=== PATIENT | male | born 1965 | race African-American/Black ===

== ENCOUNTER 2021-03-18 13:12 | Inpatient (IN) | payer OTHER ==
[2021-03-18 14:21] VITALS: BMI 24.0
[2021-03-18] MEDS ORDERED: MAGNESIUM CITRATE 300 ML BOTTLE PO PRN (19:14)
[2021-03-18] MEDS ORDERED: MENTHOL/PHENOL 1 EACH UD MM PRN (19:14)
[2021-03-18] MEDS ORDERED: diazePAM 5 MG TABLET PO PRN (19:14)
[2021-03-18] MEDS ORDERED: MAGNESIUM HYDROX 2400MG/30ML ORAL SUSPENSION 30 ML CUP PO PRN (19:14)
[2021-03-18] MEDS ORDERED: BISMUTH SUBSALICYLATE 524 MG/30 ML PO PRN (19:14)
[2021-03-18] MEDS ORDERED: IBUPROFEN 400 MG TABLET (FP) PO PRN (19:14)
[2021-03-18] MEDS ORDERED: ONDANSETRON *ODT* 4 MG TABLET SL PRN (19:14)
[2021-03-18] MEDS ORDERED: MAG HYDROX/AL HYDROX/SIMETH 30 ML UNIT-DOSE CUP PO PRN (19:14)
[2021-03-18] MEDS ORDERED: ACETAMINOPHEN 325 MG TABLET (FP) PO PRN ×2 (19:14)
[2021-03-18] MEDS ORDERED: METHOCARBAMOL 500 MG TABLET PO PRN (19:14)
[2021-03-18] MEDS ORDERED: NICOTINE POLACRILEX 2 MG GUM BUC PRN (19:14)
[2021-03-18] MEDS: MELATONIN 5 MG TABLETS PO SCH (22:11)
[2021-03-18] MEDS: THIAMINE HCL 100 MG TABLET (FP) PO SCH (22:12)
[2021-03-18] MEDS ORDERED: diazePAM 5 MG TABLET ONE (22:13)
[2021-03-18] MEDS: diazePAM 5 MG TABLET PO SCH (22:14)
[2021-03-19] MEDS ORDERED: diazePAM 5 MG TABLET ONE ×2 (05:48→10:38)
[2021-03-19] MEDS: diazePAM 5 MG TABLET PO SCH ×3 (06:37→18:27)
[2021-03-19] MEDS ORDERED: amLODIPine BESYLATE 5 MG TABLET (FP) ONE (10:38)
[2021-03-19] MEDS ORDERED: ASPIRIN 81 MG CHEWABLE TABLETS ONE (10:38)
[2021-03-19] MEDS ORDERED: LISINOPRIL 10 MG TABLET ONE (10:39)
[2021-03-19] MEDS: ASPIRIN COATED 81 MG TABLET.EC PO SCH (10:45)
[2021-03-19] MEDS: LISINOPRIL 5 MG TABLET PO SCH (10:46)
[2021-03-19] MEDS: amLODIPine BESYLATE 5 MG TABLET (FP) PO SCH (10:46)
[2021-03-19] MEDS: PRENATAL VITAMINS W/ FOLIC ACID TABLET (FP) PO SCH (12:34)
[2021-03-19] MEDS: NICOTINE 21 MG/24 HOURS TOPICAL PATCH TD SCH (12:34)
[2021-03-20] MEDS: ATORVASTATIN CA 10 MG TABLET (FP) PO SCH ×2 (00:50→22:00)
[2021-03-20] MEDS: MELATONIN 5 MG TABLETS PO SCH ×2 (00:51→22:00)
[2021-03-20] MEDS: diazePAM 5 MG TABLET PO SCH ×4 (00:51→22:01)
[2021-03-20] MEDS: THIAMINE HCL 100 MG TABLET (FP) PO SCH ×2 (00:51→22:00)
[2021-03-20] MEDS: PRENATAL VITAMINS W/ FOLIC ACID TABLET (FP) PO SCH (10:45)
[2021-03-20] MEDS: LISINOPRIL 5 MG TABLET PO SCH (10:45)
[2021-03-20] MEDS: NICOTINE 21 MG/24 HOURS TOPICAL PATCH TD SCH (10:45)
[2021-03-20] MEDS: ASPIRIN COATED 81 MG TABLET.EC PO SCH (10:45)
[2021-03-20] MEDS: amLODIPine BESYLATE 5 MG TABLET (FP) PO SCH (10:45)
[2021-03-20] MEDS: HALOPERIDOL 5 MG TABLET PO SCH (13:34)
[2021-03-20] MEDS: QUEtiapine FUMARATE 50 MG TABLET PO SCH (22:00)
[2021-03-20] MEDS: diphenhydrAMINE HCL 25 MG CAPSULE (FP) PO SCH (22:01)
[2021-03-21] MEDS: diazePAM 5 MG TABLET PO SCH ×2 (07:30→19:27)
[2021-03-21] MEDS: ASPIRIN COATED 81 MG TABLET.EC PO SCH (10:50)
[2021-03-21] MEDS: HALOPERIDOL 5 MG TABLET PO SCH (10:50)
[2021-03-21] MEDS: LISINOPRIL 5 MG TABLET PO SCH (10:51)
[2021-03-21] MEDS: NICOTINE 21 MG/24 HOURS TOPICAL PATCH TD SCH (10:51)
[2021-03-21] MEDS: PRENATAL VITAMINS W/ FOLIC ACID TABLET (FP) PO SCH (10:51)
[2021-03-21] MEDS: amLODIPine BESYLATE 5 MG TABLET (FP) PO SCH (10:51)
[2021-03-21 19:55] LABS: CALCIUM 8.7 mg/dL (8.5-10.1)
[2021-03-21 19:56] LABS: ALBUMIN 3.5 g/dl (3.4-5.0); BLOOD UREA NITROGEN 14.1 mg/dL (7-18)
[2021-03-21 19:59] LABS: CREATININE 0.9 mg/dL (0.55-1.3)
[2021-03-21 20:01] LABS: BILIRUBIN,TOTAL 0.2 mg/dL (0.2-1); TOT PROT 5.9 g/dl (6.4-8.2)
[2021-03-21] MEDS: QUEtiapine FUMARATE 50 MG TABLET PO SCH (22:07)
[2021-03-21] MEDS: diphenhydrAMINE HCL 25 MG CAPSULE (FP) PO SCH (22:07)
[2021-03-21] MEDS: ATORVASTATIN CA 10 MG TABLET (FP) PO SCH (22:08)
[2021-03-21] MEDS: THIAMINE HCL 100 MG TABLET (FP) PO SCH (22:08)
[2021-03-21] MEDS: MELATONIN 5 MG TABLETS PO SCH (22:08)
[2021-03-22] MEDS ORDERED: diazePAM 5 MG TABLET PO ONE (06:00)
[2021-03-22] MEDS: ASPIRIN COATED 81 MG TABLET.EC PO SCH (10:45)
[2021-03-22] MEDS: HALOPERIDOL 5 MG TABLET PO SCH (10:45)
[2021-03-22] MEDS: amLODIPine BESYLATE 5 MG TABLET (FP) PO SCH (10:45)
[2021-03-22] MEDS: LISINOPRIL 5 MG TABLET PO SCH (10:45)
[2021-03-22] MEDS: PRENATAL VITAMINS W/ FOLIC ACID TABLET (FP) PO SCH (10:45)
[2021-03-22] MEDS: NICOTINE 21 MG/24 HOURS TOPICAL PATCH TD SCH (10:46)
[2021-03-22 18:16] VITALS: BP 139/95; PULSE 69; TEMP 97.1
== END 2021-03-22 18:28 | disposition other institution (70) | DRG 775 ==
LOC: YASAS 13:12 → Y3N 03-19 11:03
PROVIDERS: ADMIT Allergy & Immunology; ATTEND Allergy & Immunology
PROC: HZ2ZZZZ Detoxification Services for Substance Abuse Treatment (ICD-10-PCS; principal; 2021-03-19)
DX: F10.230 Alcohol dependence with withdrawal, uncomplicated (principal); F10.220 Alcohol dependence with intoxication, uncomplicated; F12.20 Cannabis dependence, uncomplicated; F17.210 Nicotine dependence, cigarettes, uncomplicated; F32.9 Major depressive disorder, single episode, unspecified; F25.9 Schizoaffective disorder, unspecified; I10 Essential (primary) hypertension; E78.5 Hyperlipidemia, unspecified; R01.1 Cardiac murmur, unspecified; R76.11 Nonspecific reaction to tuberculin skin test without active tuberculosis; G47.00 Insomnia, unspecified; Z56.0 Unemployment, unspecified
CPT/HCPCS: 36415; 80053; 86593; 86780; 93005; 93010; C9803; U0003; U0005

== ENCOUNTER 2021-03-22 17:24 | Inpatient (IN) | payer OTHER ==
[2021-03-22] MEDS ORDERED: MAG HYDROX/AL HYDROX/SIMETH 30 ML UNIT-DOSE CUP PO PRN (18:42)
[2021-03-22] MEDS ORDERED: MAGNESIUM CITRATE 300 ML BOTTLE PO PRN (18:42)
[2021-03-22] MEDS ORDERED: guaiFENesin 200 MG/10 ML 10 ML UNIT-DOSE CUPS PO PRN (18:42)
[2021-03-22] MEDS ORDERED: LOPERAMIDE HCL 2 MG CAPSULE PO PRN (18:42)
[2021-03-22] MEDS ORDERED: NICOTINE POLACRILEX 2 MG GUM BUC PRN (18:42)
[2021-03-22] MEDS ORDERED: MENTHOL/PHENOL 1 EACH UD MM PRN (18:42)
[2021-03-22] MEDS ORDERED: MAGNESIUM HYDROX 2400MG/30ML ORAL SUSPENSION 30 ML CUP PO PRN (18:42)
[2021-03-22] MEDS ORDERED: ACETAMINOPHEN 325 MG TABLET (FP) PO PRN (18:42)
[2021-03-22] MEDS ORDERED: P-EPHED 60MG/TRIPROLIDI 2.5MG TABLET PO PRN (18:42)
[2021-03-22] MEDS ORDERED: diphenhydrAMINE HCL 50 MG CAPSULE PO SCH (22:00)
[2021-03-22] MEDS: ATORVASTATIN CA 10 MG TABLET (FP) PO SCH (23:11)
[2021-03-22] MEDS: THIAMINE HCL 100 MG TABLET (FP) PO SCH (23:11)
[2021-03-22] MEDS: diphenhydrAMINE HCL 25 MG CAPSULE (FP) PO SCH (23:11)
[2021-03-22] MEDS: MELATONIN 5 MG TABLETS PO SCH (23:13)
[2021-03-22] MEDS ORDERED: QUEtiapine FUMARATE 50 MG TABLET PO ONE (23:15)
[2021-03-23] MEDS: ASPIRIN COATED 81 MG TABLET.EC PO SCH (10:16)
[2021-03-23] MEDS: amLODIPine BESYLATE 5 MG TABLET (FP) PO SCH (10:16)
[2021-03-23] MEDS: LISINOPRIL 5 MG TABLET PO SCH (10:16)
[2021-03-23] MEDS: PRENATAL VITAMINS W/ FOLIC ACID TABLET (FP) PO SCH (10:16)
[2021-03-23] MEDS: HALOPERIDOL 5 MG TABLET PO SCH (10:18)
[2021-03-23] MEDS: MELATONIN 5 MG TABLETS PO SCH (21:34)
[2021-03-23] MEDS: diphenhydrAMINE HCL 25 MG CAPSULE (FP) PO SCH (21:34)
[2021-03-23] MEDS: ATORVASTATIN CA 10 MG TABLET (FP) PO SCH (21:34)
[2021-03-23] MEDS: THIAMINE HCL 100 MG TABLET (FP) PO SCH (21:34)
[2021-03-23] MEDS: QUEtiapine FUMARATE 100 MG TABLET (FP) PO SCH (21:34)
[2021-03-24] MEDS: PRENATAL VITAMINS W/ FOLIC ACID TABLET (FP) PO SCH (10:08)
[2021-03-24] MEDS: amLODIPine BESYLATE 5 MG TABLET (FP) PO SCH (10:09)
[2021-03-24] MEDS: ASPIRIN COATED 81 MG TABLET.EC PO SCH (10:09)
[2021-03-24] MEDS: HALOPERIDOL 5 MG TABLET PO SCH (10:09)
[2021-03-24] MEDS: LISINOPRIL 5 MG TABLET PO SCH (10:09)
[2021-03-24] MEDS: diphenhydrAMINE HCL 25 MG CAPSULE (FP) PO SCH (21:34)
[2021-03-24] MEDS: THIAMINE HCL 100 MG TABLET (FP) PO SCH (21:34)
[2021-03-24] MEDS: ATORVASTATIN CA 10 MG TABLET (FP) PO SCH (21:34)
[2021-03-24] MEDS: QUEtiapine FUMARATE 100 MG TABLET (FP) PO SCH (21:34)
[2021-03-24] MEDS: MELATONIN 5 MG TABLETS PO SCH (21:35)
[2021-03-25] MEDS: PRENATAL VITAMINS W/ FOLIC ACID TABLET (FP) PO SCH (09:39)
[2021-03-25] MEDS: ASPIRIN COATED 81 MG TABLET.EC PO SCH (09:40)
[2021-03-25] MEDS: LISINOPRIL 5 MG TABLET PO SCH (09:40)
[2021-03-25] MEDS: HALOPERIDOL 5 MG TABLET PO SCH (09:40)
[2021-03-25] MEDS: amLODIPine BESYLATE 5 MG TABLET (FP) PO SCH (09:40)
[2021-03-25] MEDS: QUEtiapine FUMARATE 100 MG TABLET (FP) PO SCH (21:27)
[2021-03-25] MEDS: ATORVASTATIN CA 10 MG TABLET (FP) PO SCH (21:27)
[2021-03-25] MEDS: diphenhydrAMINE HCL 25 MG CAPSULE (FP) PO SCH (21:27)
[2021-03-25] MEDS: THIAMINE HCL 100 MG TABLET (FP) PO SCH (21:27)
[2021-03-25] MEDS: MELATONIN 5 MG TABLETS PO SCH (21:28)
[2021-03-26] MEDS: PRENATAL VITAMINS W/ FOLIC ACID TABLET (FP) PO SCH (10:03)
[2021-03-26] MEDS: ASPIRIN COATED 81 MG TABLET.EC PO SCH (10:04)
[2021-03-26] MEDS: amLODIPine BESYLATE 5 MG TABLET (FP) PO SCH (10:04)
[2021-03-26] MEDS: HALOPERIDOL 5 MG TABLET PO SCH (10:04)
[2021-03-26] MEDS: LISINOPRIL 5 MG TABLET PO SCH (10:04)
[2021-03-26] MEDS: QUEtiapine FUMARATE 100 MG TABLET (FP) PO SCH (21:45)
[2021-03-26] MEDS: ATORVASTATIN CA 10 MG TABLET (FP) PO SCH (21:45)
[2021-03-26] MEDS: THIAMINE HCL 100 MG TABLET (FP) PO SCH (21:45)
[2021-03-26] MEDS: diphenhydrAMINE HCL 25 MG CAPSULE (FP) PO SCH (21:46)
[2021-03-26] MEDS: MELATONIN 5 MG TABLETS PO SCH (21:46)
[2021-03-27] MEDS: LISINOPRIL 5 MG TABLET PO SCH (10:10)
[2021-03-27] MEDS: PRENATAL VITAMINS W/ FOLIC ACID TABLET (FP) PO SCH (10:10)
[2021-03-27] MEDS: ASPIRIN COATED 81 MG TABLET.EC PO SCH (10:10)
[2021-03-27] MEDS: HALOPERIDOL 5 MG TABLET PO SCH (10:11)
[2021-03-27] MEDS: amLODIPine BESYLATE 5 MG TABLET (FP) PO SCH (10:11)
[2021-03-27] MEDS: MELATONIN 5 MG TABLETS PO SCH (21:35)
[2021-03-27] MEDS: diphenhydrAMINE HCL 25 MG CAPSULE (FP) PO SCH (21:35)
[2021-03-27] MEDS: THIAMINE HCL 100 MG TABLET (FP) PO SCH (21:35)
[2021-03-27] MEDS: QUEtiapine FUMARATE 100 MG TABLET (FP) PO SCH (21:35)
[2021-03-27] MEDS: ATORVASTATIN CA 10 MG TABLET (FP) PO SCH (21:35)
[2021-03-28] MEDS: amLODIPine BESYLATE 5 MG TABLET (FP) PO SCH (10:28)
[2021-03-28] MEDS: ASPIRIN COATED 81 MG TABLET.EC PO SCH (10:28)
[2021-03-28] MEDS: PRENATAL VITAMINS W/ FOLIC ACID TABLET (FP) PO SCH (10:28)
[2021-03-28] MEDS: HALOPERIDOL 5 MG TABLET PO SCH (10:28)
[2021-03-28] MEDS: LISINOPRIL 5 MG TABLET PO SCH (10:28)
[2021-03-28] MEDS: THIAMINE HCL 100 MG TABLET (FP) PO SCH (22:08)
[2021-03-28] MEDS: MELATONIN 5 MG TABLETS PO SCH (22:08)
[2021-03-28] MEDS: QUEtiapine FUMARATE 100 MG TABLET (FP) PO SCH (22:08)
[2021-03-28] MEDS: diphenhydrAMINE HCL 25 MG CAPSULE (FP) PO SCH (22:08)
[2021-03-28] MEDS: ATORVASTATIN CA 10 MG TABLET (FP) PO SCH (22:08)
[2021-03-29] MEDS: amLODIPine BESYLATE 5 MG TABLET (FP) PO SCH (10:29)
[2021-03-29] MEDS: ASPIRIN COATED 81 MG TABLET.EC PO SCH (10:29)
[2021-03-29] MEDS: HALOPERIDOL 5 MG TABLET PO SCH (10:29)
[2021-03-29] MEDS: PRENATAL VITAMINS W/ FOLIC ACID TABLET (FP) PO SCH (10:29)
[2021-03-29] MEDS: LISINOPRIL 5 MG TABLET PO SCH (10:29)
[2021-03-29] MEDS: MELATONIN 5 MG TABLETS PO SCH (21:35)
[2021-03-29] MEDS: THIAMINE HCL 100 MG TABLET (FP) PO SCH (21:35)
[2021-03-29] MEDS: diphenhydrAMINE HCL 25 MG CAPSULE (FP) PO SCH (21:36)
[2021-03-29] MEDS: QUEtiapine FUMARATE 100 MG TABLET (FP) PO SCH (21:36)
[2021-03-29] MEDS: ATORVASTATIN CA 10 MG TABLET (FP) PO SCH (21:36)
[2021-03-30] MEDS: LISINOPRIL 5 MG TABLET PO SCH (10:39)
[2021-03-30] MEDS: ASPIRIN COATED 81 MG TABLET.EC PO SCH (10:39)
[2021-03-30] MEDS: amLODIPine BESYLATE 5 MG TABLET (FP) PO SCH (10:39)
[2021-03-30] MEDS: HALOPERIDOL 5 MG TABLET PO SCH (10:39)
[2021-03-30] MEDS: PRENATAL VITAMINS W/ FOLIC ACID TABLET (FP) PO SCH (10:40)
[2021-03-30] MEDS ORDERED: COVID-19 VAC,AD26(JANSSEN)/PF 0.5 ML IM ONE (12:00)
[2021-03-30] MEDS: ATORVASTATIN CA 10 MG TABLET (FP) PO SCH (21:51)
[2021-03-30] MEDS: diphenhydrAMINE HCL 25 MG CAPSULE (FP) PO SCH (21:51)
[2021-03-30] MEDS: THIAMINE HCL 100 MG TABLET (FP) PO SCH (21:51)
[2021-03-30] MEDS: QUEtiapine FUMARATE 100 MG TABLET (FP) PO SCH (21:51)
[2021-03-30] MEDS: MELATONIN 5 MG TABLETS PO SCH (21:52)
[2021-03-31] MEDS: HALOPERIDOL 5 MG TABLET PO SCH (10:36)
[2021-03-31] MEDS: LISINOPRIL 5 MG TABLET PO SCH (10:36)
[2021-03-31] MEDS: METHOCARBAMOL 500 MG TABLET PO PRN ×2 (10:37→21:42)
[2021-03-31] MEDS: ASPIRIN COATED 81 MG TABLET.EC PO SCH (10:37)
[2021-03-31] MEDS: PRENATAL VITAMINS W/ FOLIC ACID TABLET (FP) PO SCH (10:37)
[2021-03-31] MEDS: IBUPROFEN 400 MG TABLET (FP) PO PRN ×2 (10:37→21:41)
[2021-03-31] MEDS: amLODIPine BESYLATE 5 MG TABLET (FP) PO SCH (10:37)
[2021-03-31] MEDS: QUEtiapine FUMARATE 100 MG TABLET (FP) PO SCH (21:41)
[2021-03-31] MEDS: THIAMINE HCL 100 MG TABLET (FP) PO SCH (21:41)
[2021-03-31] MEDS: diphenhydrAMINE HCL 25 MG CAPSULE (FP) PO SCH (21:41)
[2021-03-31] MEDS: ATORVASTATIN CA 10 MG TABLET (FP) PO SCH (21:41)
[2021-03-31] MEDS: MELATONIN 5 MG TABLETS PO SCH (22:21)
[2021-04-01] MEDS: ASPIRIN COATED 81 MG TABLET.EC PO SCH (10:27)
[2021-04-01] MEDS: LISINOPRIL 5 MG TABLET PO SCH (10:27)
[2021-04-01] MEDS: amLODIPine BESYLATE 5 MG TABLET (FP) PO SCH (10:27)
[2021-04-01] MEDS: HALOPERIDOL 5 MG TABLET PO SCH (10:28)
[2021-04-01] MEDS: PRENATAL VITAMINS W/ FOLIC ACID TABLET (FP) PO SCH (10:28)
[2021-04-01] MEDS: QUEtiapine FUMARATE 100 MG TABLET (FP) PO SCH (21:56)
[2021-04-01] MEDS: diphenhydrAMINE HCL 25 MG CAPSULE (FP) PO SCH (21:56)
[2021-04-01] MEDS: ATORVASTATIN CA 10 MG TABLET (FP) PO SCH (21:56)
[2021-04-01] MEDS: THIAMINE HCL 100 MG TABLET (FP) PO SCH (21:56)
[2021-04-01] MEDS: MELATONIN 5 MG TABLETS PO SCH (21:57)
[2021-04-02] MEDS: ASPIRIN COATED 81 MG TABLET.EC PO SCH (10:15)
[2021-04-02] MEDS: LISINOPRIL 5 MG TABLET PO SCH (10:15)
[2021-04-02] MEDS: PRENATAL VITAMINS W/ FOLIC ACID TABLET (FP) PO SCH (10:15)
[2021-04-02] MEDS: HALOPERIDOL 5 MG TABLET PO SCH (10:15)
[2021-04-02] MEDS: amLODIPine BESYLATE 5 MG TABLET (FP) PO SCH (10:15)
[2021-04-02] MEDS: diphenhydrAMINE HCL 25 MG CAPSULE (FP) PO SCH (21:37)
[2021-04-02] MEDS: ATORVASTATIN CA 10 MG TABLET (FP) PO SCH (21:37)
[2021-04-02] MEDS: THIAMINE HCL 100 MG TABLET (FP) PO SCH (21:37)
[2021-04-02] MEDS: QUEtiapine FUMARATE 100 MG TABLET (FP) PO SCH (21:37)
[2021-04-02] MEDS: MELATONIN 5 MG TABLETS PO SCH (21:38)
[2021-04-03] MEDS: LISINOPRIL 5 MG TABLET PO SCH (10:10)
[2021-04-03] MEDS: HALOPERIDOL 5 MG TABLET PO SCH (10:10)
[2021-04-03] MEDS: ASPIRIN COATED 81 MG TABLET.EC PO SCH (10:10)
[2021-04-03] MEDS: amLODIPine BESYLATE 5 MG TABLET (FP) PO SCH (10:11)
[2021-04-03] MEDS: PRENATAL VITAMINS W/ FOLIC ACID TABLET (FP) PO SCH (10:11)
[2021-04-03] MEDS: METHOCARBAMOL 500 MG TABLET PO PRN (16:55)
[2021-04-03] MEDS: diphenhydrAMINE HCL 25 MG CAPSULE (FP) PO SCH (21:35)
[2021-04-03] MEDS: ATORVASTATIN CA 10 MG TABLET (FP) PO SCH (21:35)
[2021-04-03] MEDS: QUEtiapine FUMARATE 100 MG TABLET (FP) PO SCH (21:35)
[2021-04-03] MEDS: MELATONIN 5 MG TABLETS PO SCH (21:35)
[2021-04-03] MEDS: THIAMINE HCL 100 MG TABLET (FP) PO SCH (21:35)
[2021-04-04] MEDS: amLODIPine BESYLATE 5 MG TABLET (FP) PO SCH (10:43)
[2021-04-04] MEDS: ASPIRIN COATED 81 MG TABLET.EC PO SCH (10:43)
[2021-04-04] MEDS: LISINOPRIL 5 MG TABLET PO SCH (10:43)
[2021-04-04] MEDS: HALOPERIDOL 5 MG TABLET PO SCH (10:43)
[2021-04-04] MEDS: PRENATAL VITAMINS W/ FOLIC ACID TABLET (FP) PO SCH (10:43)
[2021-04-04] MEDS: THIAMINE HCL 100 MG TABLET (FP) PO SCH (21:43)
[2021-04-04] MEDS: QUEtiapine FUMARATE 100 MG TABLET (FP) PO SCH (21:44)
[2021-04-04] MEDS: diphenhydrAMINE HCL 25 MG CAPSULE (FP) PO SCH (21:44)
[2021-04-04] MEDS: MELATONIN 5 MG TABLETS PO SCH (21:44)
[2021-04-04] MEDS: ATORVASTATIN CA 10 MG TABLET (FP) PO SCH (21:44)
[2021-04-05 07:40] VITALS: BP 114/76; PULSE 72; TEMP 97.3
[2021-04-05] MEDS: ASPIRIN COATED 81 MG TABLET.EC PO SCH (08:59)
[2021-04-05] MEDS: HALOPERIDOL 5 MG TABLET PO SCH (09:00)
[2021-04-05] MEDS: LISINOPRIL 5 MG TABLET PO SCH (09:00)
[2021-04-05] MEDS: amLODIPine BESYLATE 5 MG TABLET (FP) PO SCH (09:00)
[2021-04-05] MEDS: PRENATAL VITAMINS W/ FOLIC ACID TABLET (FP) PO SCH (09:00)
== END 2021-04-05 09:35 | disposition home or self-care (01) | DRG 772 ==
LOC: YASAS 17:24 → Y5N 17:25
PROVIDERS: ADMIT Allergy & Immunology; ATTEND Allergy & Immunology
PROC: HZ42ZZZ Group Counseling for Substance Abuse Treatment, Cognitive-Behavioral (ICD-10-PCS; principal; 2021-03-22)
DX: F10.20 Alcohol dependence, uncomplicated (principal); F12.20 Cannabis dependence, uncomplicated; F17.210 Nicotine dependence, cigarettes, uncomplicated; F25.9 Schizoaffective disorder, unspecified; F32.9 Major depressive disorder, single episode, unspecified; G47.00 Insomnia, unspecified; I10 Essential (primary) hypertension; E78.5 Hyperlipidemia, unspecified; R01.1 Cardiac murmur, unspecified; R76.11 Nonspecific reaction to tuberculin skin test without active tuberculosis
CPT/HCPCS: 0031A; 71046-TC-FY; 91303